=== PATIENT | female | born 1990 | race Hispanic/Latino ===

== ENCOUNTER 2020-07-26 10:00 | Inpatient (IN) | payer MEDICAID ==
[~2020-07-26] VITALS: Ht 167.6 cm; Wt 104.8 kg
[~2020-07-26 10:00] MED LIST: NO HOME MEDICATIONS
[2020-08-05] MEDS ORDERED: CEFAZOLIN SODIUM 1 GM VIAL IVP PRN (05:15)
[2020-08-05 05:58] LABS: HEMATOCRIT 34.1 % (36-48); MEAN CORPUSCULAR HEMOGLOBIN 30.6 pg (27.0-33.0); MEAN CORPUSCULAR HGB CONC 34.6 g/dL (32.0-36.0); MEAN CORPUSCULAR VOLUME 88.3 fL (79-99); RED BLOOD CELL COUNT(AUTO) 3.86 MIL/uL (4.00-5.50); RED CELL DISTRIBUTION WIDTH 12.6 % (11.0-15.5); WHITE BLOOD COUNT (AUTO) 7.6 K/uL (4.8-10.8)
[2020-08-05] MEDS ORDERED: LACTATED RINGERS 1000ML 1,000 ML IV ONE (06:26)
[2020-08-05 06:37] VITALS: BP 127/71
[2020-08-05] MEDS ORDERED: ONDANSETRON HCL 4 MG/2 ML VIAL ONE (07:20)
[2020-08-05] MEDS ORDERED: OXYTOCIN 10 UNIT/1ML 10ML VIAL ONE (07:20)
[2020-08-05] MEDS ORDERED: FENTANYL CITRATE PF 50 MCG/1 ML 2ML VIAL ONE (07:21)
[2020-08-05] MEDS ORDERED: DURAMORPH PF1 MG/ML 10ML AMP IV ONE (07:21)
[2020-08-05] MEDS ORDERED: CEFAZOLIN SODIUM 1 GM VIAL IVP ONE (07:45)
[2020-08-05 07:46] LABS: APPEARANCE,URINE Clear (CLEAR); BILIRUBIN,URINE Negative (NEGATIVE); COLOR,URINE Yellow (YELLOW); GLUCOSE, URINE (UA) Negative (NEGATIVE); KETONES,URINE Negative (NEGATIVE); LEUKOCYTE ESTERASE ,URINE Small (NEGATIVE); NITRATE,URINE Negative (NEGATIVE); OCCULT BLOOD,URINE Nonhemolyzed Trace (NEGATIVE); PH,URINE 6.5 (5.0-8.0); PROTEIN,URINE Negative (NEGATIVE)
[2020-08-05 07:56] LABS: BACTERIA,URINE Moderate /HPF (None Seen); RBC,URINE 0-1 /HPF (0-1)
[2020-08-05] MEDS ORDERED: MEPERIDINE-PF 75 MG/ML SYG IM PRN (09:00)
[2020-08-05] MEDS ORDERED: SODIUM CHLORIDE 0.9% 10 ML VIAL IVP PRN (09:00)
[2020-08-05] MEDS ORDERED: PROMETHAZINE HCL 25 MG/ML 1ML AMPULE IM PRN (09:00)
[2020-08-05] MEDS ORDERED: OXYTOCIN-LR 20 UNITS/1000 ML 1,000 ML IV PRN (09:00)
[2020-08-05 10:30] VITALS: BP 111/57
[2020-08-05 12:00] VITALS: BP 120/72
[2020-08-05] MEDS: ONDANSETRON HCL 4 MG/2 ML VIAL IVP PRN ×2 (12:08→14:39)
[2020-08-05] MEDS ORDERED: NALOXONE HCL 0.4 MG/1 ML ML IVP PRN ×2 (12:15)
[2020-08-05] MEDS ORDERED: DiphenhydrAMINE HCL 50 MG/ML VIAL IVP PRN (12:15)
[2020-08-05] MEDS ORDERED: PREN-18 PO (13:42)
[2020-08-05] MEDS: DEXTROSE 5 %-0.45 % NACL 1,000 ML IV PRN ×2 (14:41→22:00)
[2020-08-05 16:00] VITALS: BP 131/75
[2020-08-05 19:21] VITALS: BP 124/70
[2020-08-05 23:06] VITALS: BP 112/53
[2020-08-06 03:15] VITALS: BP 117/51
[2020-08-06] MEDS: DEXTROSE 5 %-0.45 % NACL 1,000 ML IV PRN (05:07)
[2020-08-06] MEDS ORDERED: BISACODYL 10 MG SUPP.RECT RC PRN (06:00)
[2020-08-06] MEDS ORDERED: HYDROCODONE/ACETAMINOPHEN 5/325 MG TAB PO PRN (06:00)
[2020-08-06] MEDS ORDERED: ACETAMINOPHEN EXTRA STRENGTH 500 MG TABLET PO PRN (06:00)
[2020-08-06] MEDS ORDERED: ACETAMINOPHEN-CODEINE 300/30MG TAB PO PRN (06:00)
[2020-08-06 06:08] LABS: HEMATOCRIT 29.5 % (36-48); MEAN CORPUSCULAR HEMOGLOBIN 30.8 pg (27.0-33.0); MEAN CORPUSCULAR HGB CONC 33.9 g/dL (32.0-36.0); MEAN CORPUSCULAR VOLUME 90.8 fL (79-99); RED BLOOD CELL COUNT(AUTO) 3.25 MIL/uL (4.00-5.50); RED CELL DISTRIBUTION WIDTH 12.6 % (11.0-15.5); WHITE BLOOD COUNT (AUTO) 7.8 K/uL (4.8-10.8)
[2020-08-06 07:46] VITALS: BP 123/74
[2020-08-06] MEDS: SIMETHICONE 80 MG TAB.CHEW PO PRN ×2 (07:47→14:01)
[2020-08-06] MEDS: IBUPROFEN 600 MG TABLET PO PRN ×2 (07:49→14:02)
[2020-08-06 08:14] LABS: HEPATITIS Bs ANTIGEN SCREEN P Negative (Negative)
[2020-08-06] MEDS ORDERED: FLU VACC QS2020-21(6MOS UP)/PF 60 MCG/0.5 ML ML IM ONE (09:00)
[2020-08-06] MEDS ORDERED: DIPH,PERTUSS(ACELL),TET VAC/PF 0.5 ML VIAL IM ONE (09:00)
[2020-08-06] MEDS ORDERED: DOCUSATE SODIUM 100 MG CAP PO SCH (09:00)
[2020-08-06] MEDS ORDERED: FLU VACC QS2020-21(6MOS UP)/PF 60 MCG/0.5 ML ML IM SCH (10:15)
[2020-08-06] MEDS ORDERED: DIPH,PERTUSS(ACELL),TET VAC/PF 0.5 ML VIAL IM SCH (10:15)
[2020-08-06 12:00] VITALS: BP 123/61
== END 2020-08-06 15:25 | disposition home or self-care (01) | DRG 540 ==
LOC: LDH 08-05 05:02 → WSH 08-05 10:30
PROVIDERS: ADMIT Specialist; ATTEND Specialist
PROC: 0UB70ZZ Excision of Bilateral Fallopian Tubes, Open Approach (ICD-10-PCS; 2020-08-05)
PROC: 3E0234Z Introduction of Serum, Toxoid and Vaccine into Muscle, Percutaneous Approach (ICD-10-PCS; 2020-08-05)
PROC: 3E02340 Introduction of Influenza Vaccine into Muscle, Percutaneous Approach (ICD-10-PCS; 2020-08-05)
PROC: 10D00Z1 Extraction of Products of Conception, Low, Open Approach (ICD-10-PCS; principal; 2020-08-05 07:30)
DX: O34.211 Maternal care for low transverse scar from previous cesarean delivery (principal); O99.892 Other specified diseases and conditions complicating childbirth; N73.6 Female pelvic peritoneal adhesions (postinfective); O99.214 Obesity complicating childbirth; E66.9 Obesity, unspecified; O99.62 Diseases of the digestive system complicating childbirth; K21.9 Gastro-esophageal reflux disease without esophagitis; Z20.828 Contact with and (suspected) exposure to other viral communicable diseases; Z37.0 Single live birth; Z23 Encounter for immunization; Z30.2 Encounter for sterilization; Z3A.38 38 weeks gestation of pregnancy
CPT/HCPCS: 36415; 81001; 85027; 86592; 86850; 86900; 86901; 87077; 87088; 87186; 87340; 88302; 90715; A4344; G0008; G0378; J0690; J2274; J2405; J2590; J3010; J7120; Q2035; U0003